=== PATIENT | male | born 1945 | race Caucasian/White ===

== ENCOUNTER 2016-12-18 17:02 | Observation (INO) | payer OTHER, MEDICARE ==
[~2016-12-18] VITALS: Ht 167.6 cm; Wt 120.0 kg
[~2016-12-18 17:02] MED LIST: AMBIEN10 MG PO; COATED ASPIRIN325 MG PO; FLEXERIL10 MG PO; HYDROCODON-ACE1 EAC7 PO; LYRICA100 MG PO; MELOXICAM15 MG PO; MIRALAX17 G1 PO; NORCO 7.5/3251 TA1 PO; NORVASC10 M1 PO; NUCYNTA50 MG PO; PERCOCET 5-3251 EACH PO; SERTRALINE HCL50 M1 PO; ULTRAM50 MG PO; [UNRECOGNIZED DRUG - CODE] PO
[2016-12-18] MEDS ORDERED: KLONOPIN1 M1 PO (18:15)
[2016-12-18] MEDS ORDERED: PRAZOSIN HCL5 M1 PO (18:16)
[2016-12-18] MEDS ORDERED: NEURONTIN300 M1 PO (18:17)
[2016-12-18] MEDS ORDERED: HALOPERIDOL2 M1 PO (18:17)
[2016-12-19 05:26] LABS: BASO % 0.8 % (0-2); EOS % 3.5 % (0-7); EOSINOPHIL ABSOLUTE COUNT 0.1 tho/cmm (0.0-0.7); HGB-HEMOGLOBIN 9.8 gm/dl (13.5-17.0); IMMATURE GRANULOCYTES ABSOLUTE 0.01 tho/cmm (0-0.03); IMMATURE GRANULOCYTES PERCENT 0.3 % (0-0.3); LYMPH % 34.3 % (20-45); LYMPH ABSOLUTE COUNT 1.4 tho/cmm (0.8-4.5); MCH (MEAN CORPUSCULAR HGB) 22.6 pg (28.0-32.0); MCHC MEAN CORPUSCULAR HGB CONC 29.7 % (32.0-36.0); MCV (MEAN CELL VOLUME) 76.2 fl (82.0-96.0); MEAN PLATELET VOLUME 10.4 cmc (9.4-12.4); MONO % 10.3 % (0-12); MONOCYTE ABSOLUTE COUNT 0.4 tho/cmm (0.0-1.2); NEUTROPHILS % 50.8 % (40-80); PLATELET COUNT 198 tho/cmm (150-450); RED BLOOD COUNT 4.33 mil/cmm (4.40-5.70); RED CELL DISTRIBUTION WIDTH 18.1 % (12.4-16.4)
[2016-12-19 05:51] LABS: ANION GAP 10 mmol/L (0-20); BLOOD UREA NITROGEN 10 mg/dl (6-24); CALCIUM 7.8 mg/dl (8.5-10.5); CARBON DIOXIDE-VENOUS 25 mmol/L (22-32); CHLORIDE 112 mmol/l (96-110); CREATININE 0.81 mg/dl (0.60-1.30); GLUCOSE 94 mg/dL (70-110); POTASSIUM 3.4 mmol/L (3.7-5.1); SODIUM 144 mmol/L (135-145); eGFR VALUE FOR BLACK >90 mL/Min
[2016-12-19] MEDS ORDERED: DURAGESIC1 EAC1 TOP (11:52)
[2016-12-19] MEDS ORDERED: NORCO 5-325 TA1 EACH PO (11:52)
[2016-12-19] MEDS ORDERED: PRINIVIL10 M1 PO (11:53)
== END 2016-12-19 15:15 ==
LOC: CCU 17:02
PROVIDERS: ADMIT Family Medicine
DX: T40.2X1A Poisoning by other opioids, accidental (unintentional), initial encounter (principal); G62.9 Polyneuropathy, unspecified; F11.23 Opioid dependence with withdrawal; M54.9 Dorsalgia, unspecified; I10 Essential (primary) hypertension; F41.8 Other specified anxiety disorders; Z87.891 Personal history of nicotine dependence; Z79.899 Other long term (current) drug therapy; K21.9 Gastro-esophageal reflux disease without esophagitis
CPT/HCPCS: G0378; G8978-GP-CK; G8979-GP-CK; G8980-GP-CK; J1170; J1650; J2405